=== PATIENT | female | born 2000 | race Two or more races ===

== ENCOUNTER 2024-07-05 12:00 | Observation (INO) | payer MEDICAID ==
[2024-07-05] MEDS ORDERED: PREN-96 PO (12:55)
--- NOTE | 2024-07-05 13:08 | DVHDS2 ---
Physician Discharge Progress N Final Diagnosis: gdm Operations or Procedures: Operations or Procedures nst,sono Condition on Discharge: Good Disposition: Home Discharge Instructions: Diet: Consistent carbohydrate Activity: No Restrictions, As Tolerated Medications: na Follow Up Care: Specialist: 3d Discharge Statement: "Patient was advised to return to the ER or call 911 if any headaches, dizziness, shortness of breath, chest pain, abdominal pain, bleeding, fevers, or worsening of medical condition. Patient was counseled about treatment plan, medications, possible side effects, patientverbalized understanding. All questions were answered to the best of my ability. This discharge took greater then 30 minutes in planning, reviewing documentation, counseling the patient, and discussing with other team members." FRANCESCA RICHARD DO Jul 05, 2024 13:08
--- NOTE | 2024-07-05 13:43 | DVH ---
BIOPHYSICAL PROFILE HISTORY: GDMA1 TECHNIQUE: Multiple transabdominal real-time grayscale sonographic images through the gravid uterus of the fetus with duplex Doppler color flow and M-mode spectral analysis FINDINGS: BIOPHYSICAL PROFILE: breathing score: 2 movement score: 2 tone score: 2 Quantitative JESSIE score: 2 (JESSIE: 11.6 Cm.) Total score: 8 The cervix not well visualized. Single live fetus in cephalic presentation. heart rate 136 beats per minute. Anterior placenta without previa or abruption IMPRESSION: Biophysical profile score: 8
== END 2024-07-05 13:44 | disposition home or self-care (01) ==
LOC: UNDOADMOB 12:00 → LDRP 12:00 → UNDODISOB 13:44
PROVIDERS: ADMIT Obstetrics & Gynecology; ATTEND Obstetrics & Gynecology
DX: O24.419 Gestational diabetes mellitus in pregnancy, unspecified control (principal); Z3A.33 33 weeks gestation of pregnancy; Z79.899 Other long term (current) drug therapy; Z98.890 Other specified postprocedural states
CPT/HCPCS: 59025; 76818; 81002; 82948; 82962; 94760; G0378

== ENCOUNTER 2024-07-12 15:50 | Observation (INO) | payer MEDICAID ==
[~2024-07-12] VITALS: Ht 152.4 cm; Wt 63.5 kg
[~2024-07-12 15:50] MED LIST: PREN-96 PO
--- NOTE | 2024-07-12 16:53 | DVH ---
Procedure: US BIOPHYSICAL PROFILE 07/12/2024 04:08 PM Indication: GDMA1 Comparison: US BIOPHYSICAL PROFILE on DOS: 07/05/24 Technique: Sonogram of gravid uterus utilizing grayscale and color techniques. FINDINGS: Single living intrauterine gestation. Presentation: Cephalic Placenta: Anterior, grade 2 heart rate: 148 bpm JESSIE: 17.1 cm, DVP: 5.9 cm Maternal cervix: Not visualized Biophysical Profile: breathing score: 2 movement score: 2 tone: 2 Quantitative JESSIE score: 2 Total score: 8/8 IMPRESSION: 1. Single living as above. 2. Biophysical profile score: 8/8.
--- NOTE | 2024-07-13 09:21 | DVHDS2 ---
Physician Discharge Progress N Final Diagnosis: GDMA1 Operations or Procedures: Operations or Procedures NST/BPP/JESSIE Condition on Discharge: Stable Disposition: Home Discharge Instructions: Diet: Consistent carbohydrate Activity: Light activity Follow Up/Referral: as scheduled Medications: N/A Follow Up Care: Discharge Statement: "Patient was advised to return to the ER or call 911 if any headaches, dizziness, shortness of breath, chest pain, abdominal pain, bleeding, fevers, or worsening of medical condition. Patient was counseled about treatment plan, medications, possible side effects, patientverbalized understanding. All questions were answered to the best of my ability. This discharge took greater then 30 minutes in planning, reviewing docu mentation, counseling the patient, and discussing with other team members." Visit Coding OBGYN Date of Service: Jul 12, 2024 Billing Provider: LINETTE CHOE DO DRILL FOREMAN Common Visit Codes: 41735-RGT/OBS SAME DATE (MOD) DRILL FOREMAN Procedure Codes: 60062-71- NON-STRESS TEST LINETTE CHOE DO Jul 13, 2024 09:21
== END 2024-07-12 17:24 | disposition home or self-care (01) ==
LOC: LDRP 15:50
PROVIDERS: ADMIT Obstetrics & Gynecology; ATTEND Obstetrics & Gynecology
DX: O24.419 Gestational diabetes mellitus in pregnancy, unspecified control (principal); Z3A.34 34 weeks gestation of pregnancy; Z79.899 Other long term (current) drug therapy; Z98.890 Other specified postprocedural states
CPT/HCPCS: 59025; 76818; 81002; 82948; 82962; 94760; G0378

== ENCOUNTER 2024-07-17 20:42 | Observation (INO) | payer MEDICAID ==
[~2024-07-17] VITALS: Ht 149.9 cm; Wt 64.0 kg
--- NOTE | 2024-07-17 22:22 | DVH ---
OB ULTRASOUND, LIMITED CLINICAL INDICATION: vaginal bleeding/contractions TECHNIQUE: Multiple grayscale ultrasound and M-mode images were obtained of the pelvis for evaluation of intrauterine . COMPARISON: US BIOPHYSICAL PROFILE on DOS: 07/12/24, US BIOPHYSICAL PROFILE on DOS: 07/05/24 FINDINGS /impression: Biophysical profile: 01/10 breathin movements: 2 tone: 2 Amniotic fluid: 2, JESSIE 16.5 cm heart rate: 136 beats per minute position: Cephalic Placenta location: Anterior Trace fluid in the cervix. Mild cervical funneling
--- NOTE | 2024-07-17 23:05 | DVHDS2 ---
Physician Discharge Progress N Final Diagnosis: well being established Operations or Procedures: Operations or Procedures S: 24yo IUP@35.1wks presents to triage for vaginal brown discharge/cramping this AM 07/20/2024. Pt reports mild cramping intermittently for 2 hours starting at 1000, lasting 5 seconds. Patient reports "flaking" when wiping and denies any spotting or bright red bleeding since initial vaginal brown discharge this AM. Denies UCs/LOF/VB/KUMAR/vision changes/RUQ pain. Endorses +FM. Patient reports eating a cookie and drinking DrDamian Yoon before coming in. Patient states she has not had intercourse for over a week. PNC: Routine PNC at [facility] w/ Dr. Madison, adequate visits, PNC complicated by GDMA1. dating based on LMP, GBS unknown. OB hx: C/S x1 O: VSS EFM: 130, moderate, +accels, -decels TOCO: irritability noted SVE - 0/30/-3 B A: 24yo IUP@35.1wks Vaginal brown discharge GDM A1 NST reactive P: D/C home. kick counts and Preeclampsia warning signs reviewed. PTL precautions given and when to return to the hospital. Other Interventions Other Interventions OB ULTRASOUND, LIMITED CLINICAL INDICATION: vaginal bleeding/contractions TECHNIQUE: Multiple grayscale ultrasound and M-mode images were obtained of the pelvis for evaluation of intrauterine . COMPARISON: US BIOPHYSICAL PROFILE on DOS: 07/12/24, US BIOPHYSICAL PROFILE on DOS: 07/05/24 FINDINGS /impression: Biophysical profile: 8/8 breathin movements: 2 tone: 2 Amniotic fluid: 2, JESSIE 16.5 cm heart rate: 136 beats per minute position: Cephalic Placenta location: Anterior Trace fluid in the cervix. Mild cervical funneling Condition on Discharge: Stable Disposition: Home Discharge Instructions: Diet: Consistent carbohydrate Activity: No Restrictions, As Tolerated Medications: see med list Follow Up Care: Specialist: f/u 1 week Discharge Statement: "Patient was advised to return to the ER or call 911 if any headaches, dizziness, shortness of breath, chest pain, abdominal pain, bleeding, fevers, or worsening of medical condition. Patient was counseled about treatment plan, medications, possible side effects, patientverbalized understanding. All questions were answered to the best of my ability. This discharge took greater then 30 minutes in planning, reviewing documentation, counseling the patient, and discussing with other team members." Visit Coding OBGYN Date of Service: Jul 17, 2024 Billing Provider: CHELO ALVAREZ CNM PACKAGING OPERATOR Common Visit Codes: 94397-MLLEZYG OBS CARE (MOD) CHIDI ZHAO MDWF Jul 17, 2024 23:05
== END 2024-07-17 22:51 | disposition home or self-care (01) ==
LOC: LDRP 20:42
PROVIDERS: ADMIT Obstetrics & Gynecology; ATTEND Obstetrics & Gynecology
DX: O24.419 Gestational diabetes mellitus in pregnancy, unspecified control (principal); O34.62 Maternal care for abnormality of vagina, second trimester; N89.8 Other specified noninflammatory disorders of vagina; Z98.890 Other specified postprocedural states; Z79.899 Other long term (current) drug therapy; Z3A.35 35 weeks gestation of pregnancy
CPT/HCPCS: 59025; 76817; 76818; 81002; 82962; 94760; G0378

== ENCOUNTER 2024-07-26 07:30 | Observation (INO) | payer MEDICAID ==
--- NOTE | 2024-07-27 17:00 | DVH ---
BIOPHYSICAL PROFILE HISTORY: gdma1 Comparison Study: Biophysical profile 07/17/2024 TECHNIQUE: Multiple real-time grayscale sonographic images through the gravid uterus of the fetus wi th duplex Doppler color flow and M-mode spectral analysis FINDINGS: BIOPHYSICAL PROFILE: breathing score: 2 movement score: 2 tone score: 2 Quantitative JESSIE score: 2 (JESSIE: 17.3 Cm.). MVP is 6.3 cm. Total score: 8 The cervix is unremarkable. Single live fetus in cephalic presentation. heart rate 121 beats per minute. Anterior placenta without previa or abruption IMPRESSION: Biophysical profile score: 8
--- NOTE | 2024-07-28 11:14 | DVHDS2 ---
Discharge Summary Date of Admission Jul 27, 2024 at 16:10 Date of Discharge: Jul 27, 2024 Admitting Diagnosis GDM A2 , 36 weeks Wounds: n/a Labs/Diagnostic Data: Laboratory Results Test 07/27/24 16:57 POC Glucose 108 mg/dl (70-106) Brief Hx & Hospital Course: here for analysis blood sugar monitoring Consults/Reason for consult none Operations or Procedures n/a Condition at Discharge: Good Final Diagnosis/Problems List 36 wk iup GDM A 1 Discharge Disposition: Home SNF Discharge Will this Physician continue t: No Discharge Instruct/Medications Diet: Consistent carbohydrate Activity: Light activity Discharge Statement: "Patient was advised to return to the ER or call 911 if any headaches, dizziness, shortness of breath, chest pain, abdominal pain, bleeding, fevers, or worsening of medical condition. Patient was counseled about treatment plan, medications, possible side effects, patientverbalized understanding. All questions were answered to the best of my ability. This discharge took greater then 30 minutes in planning, reviewing documentation, counseling the patient, and discussing with other team members." ASSESSMENT ASSESSMENT Assessment Visit Coding OBGYN Date of Service: Jul 27, 2024 Billing Provider: ALEXIS CANNON DO EMBEDDED PROCESSOR Common Visit Codes: 99110-WSN/OBS SAME DATE (LOW), 52950-BLU/OBS SAME DATE (MOD), 78984-ECH/OBS SAME DATE (HIGH) EMBEDDED PROCESSOR Procedure Codes: 30144-20- NON-STRESS TEST ALEXIS CANNON DO Jul 28, 2024 11:14
== END 2024-07-27 17:25 | disposition home or self-care (01) ==
LOC: LDRP 07-27 16:10
PROVIDERS: ADMIT Obstetrics & Gynecology; ATTEND Obstetrics & Gynecology
DX: O24.419 Gestational diabetes mellitus in pregnancy, unspecified control (principal); Z98.890 Other specified postprocedural states; Z79.899 Other long term (current) drug therapy; Z3A.36 36 weeks gestation of pregnancy
CPT/HCPCS: 59025; 76818; 81002; 82948; 82962; 94760; G0378

== ENCOUNTER 2024-08-02 13:12 | Observation (INO) | payer MEDICAID ==
--- NOTE | 2024-08-02 17:05 | DVH ---
Procedure: US BIOPHYSICAL PROFILE 08/02/2024 04:21 PM Indication: GDMA1 Comparison: US BIOPHYSICAL PROFILE on DOS: 07/27/24, US BIOPHYSICAL PROFILE on DOS: 07/17/24, US BIOPHY SICAL PROFILE on DOS: 07/12/24 Technique: Sonogram of gravid uterus utilizing grayscale and color techniques. FINDINGS: Single living intrauterine gestation. Presentation: Cephalic Placenta: Anterior, grade 2, no previa or abruption heart rate: 155 bpm JESSIE: 19 cm, DVP: 7.3 cm Maternal cervix: Not visualized Other: Nuchal cord X1 Biophysical Profile: breathing score: 2 movement score: 2 tone: 2 Quantitative JESSIE score: 2 Total score: 8/8 IMPRESSION: 1. Single living as above. 2. Biophysical profile score: 8/8.
--- NOTE | 2024-08-02 20:45 | DVHDS2 ---
Physician Discharge Progress N Final Diagnosis: GDMA1 Operations or Procedures: Operations or Procedures NST/BPP JESSIE Condition on Discharge: Stable Disposition: Home Discharge Instructions: Diet: Consistent carbohydrate Activity: Light activity Follow Up/Referral: as scheduled Medications: N/A Follow Up Care: Discharge Statement: "Patient was advised to return to the ER or call 911 if any headaches, dizziness, shortness of breath, chest pain, abdominal pain, bleeding, fevers, or worsening of medical condition. Patient was counseled about treatment plan, medications, possible side effects, patientverbalized understanding. All questions were answered to the best of my ability. This discharge took greater then 30 minutes in planning, reviewing docu mentation, counseling the patient, and discussing with other team members." Visit Coding OBGYN Date of Service: Aug 02, 2024 Billing Provider: LINETTE CHOE DO EXHIBIT CLEANER Common Visit Codes: 18830-LXB/OBS SAME DATE (MOD) EXHIBIT CLEANER Procedure Codes: 41173-04- NON-STRESS TEST LINETTE CHOE DO Aug 02, 2024 20:45
== END 2024-08-02 17:24 | disposition home or self-care (01) ==
LOC: LDRP 15:57 → UNDOADMOB 15:57 → LDRP 15:59 → UNDODISOB 17:24
PROVIDERS: ADMIT Obstetrics & Gynecology; ATTEND Obstetrics & Gynecology
DX: O24.410 Gestational diabetes mellitus in pregnancy, diet controlled (principal); Z3A.37 37 weeks gestation of pregnancy; Z79.899 Other long term (current) drug therapy; Z98.890 Other specified postprocedural states
CPT/HCPCS: 76818; 81002; 94760; G0378; 59025

== ENCOUNTER 2024-08-09 08:33 | Observation (INO) | payer MEDICAID ==
--- NOTE | 2024-08-09 17:36 | DVH ---
BIOPHYSICAL PROFILE HISTORY: gdma1 TECHNIQUE: Multiple transabdominal real-time grayscale sonographic images through the gravid uterus of the fetus with duplex Doppler color flow and M-mode spectral analysis FINDINGS: BIOPHYSICAL PROFILE: breathing score: 2 movement score: 2 tone score: 2 Quantitative JESSIE score: 2 (JESSIE: 15.9 Cm.) Total score: 8/8 The cervix not measured Single live fetus in cephalic presentation. heart rate 142 beats per minute. Anterior Grade 2 placenta without previa or abruption Single live fetus at 38 weeks 3 days Biophysical profile score 8/8 corresponding to an ZAID of 08/20/2024 IMPRESSION: 1. Biophysical profile score: 8/8
--- NOTE | 2024-08-10 08:15 | DVHDS2 ---
Physician Discharge Progress N Final Diagnosis: [id number] Operations or Procedures: Operations or Procedures nst,sono Condition on Discharge: Good Disposition: Home Discharge Instructions: Diet: Regular Activity: No Restrictions, As Tolerated Medications: na Follow Up Care: Specialist: 3d Discharge Statement: "Patient was advised to return to the ER or call 911 if any headaches, dizziness, shortness of breath, chest pain, abdominal pain, bleeding, fevers, or worsening of medical condition. Patient was counseled about treatment plan, medications, possible side effects, patientverbalized understanding. All questions were answered to the best of my ability. This discharge took greater then 30 minutes in planning, reviewing documentation, counseling the patient, and discussing with other team members." Visit Coding OBGYN Date of Service: Aug 09, 2024 Billing Provider: FRANCESCA RICHARD DO MANAGER RESPIRATORY CARE Common Visit Codes: 76890-IELVVGM INP/OBS CARE (HIGH) MANAGER RESPIRATORY CARE Procedure Codes: 10812-06- NON-STRESS TEST FRANCESCA RICHARD DO Aug 10, 2024 08:15
== END 2024-08-09 17:46 | disposition home or self-care (01) ==
LOC: LDRP 16:00 → UNDOADMOB 16:00 → LDRP 16:08 → UNDODISOB 17:46
PROVIDERS: ADMIT Obstetrics & Gynecology; ATTEND Obstetrics & Gynecology
DX: O24.419 Gestational diabetes mellitus in pregnancy, unspecified control (principal); Z98.890 Other specified postprocedural states; Z79.899 Other long term (current) drug therapy; Z3A.38 38 weeks gestation of pregnancy
CPT/HCPCS: 59025; 76819; 81002; 94760; G0378; 76818

== ENCOUNTER 2024-08-12 10:14 | Inpatient (IN) | payer MEDICAID ==
[~2024-08-12] VITALS: Ht 149.9 cm; Wt 68.0 kg
--- NOTE | 2024-08-12 09:14 | DVHHP ---
ADMIT DATE: 08/12/2024 CHIEF COMPLAINT: Desires repeat section. HISTORY OF PRESENT ILLNESS: The patient is a 2, para 1 female with EDC 08/20/2024, estimated gestational age of 39 weeks, admitted for repeat section. The patient has GDM A1, well controlled. She also has double nuchal cord on ultrasound. The patient wishes to proceed with repeat section. Denies having any vaginal bleeding or leakage of fluid. PAST MEDICAL HISTORY: None. PAST SURGICAL HISTORY: . SOCIAL HISTORY: None. FAMILY HISTORY: None. OBSTETRIC AND GYNECOLOGIC HISTORY: One section, GDM A1. REVIEW OF SYSTEMS: Consistent with HPI. PHYSICAL EXAMINATION: VITAL SIGNS: Stable, afebrile. HEENT: Within normal limits. CARDIOVASCULAR: Regular rate and rhythm. LUNGS: Clear to auscultation. BREASTS: Symmetrical. No masses. ABDOMEN: Gravid. Fundal height of 38 cm. PELVIC: Cervix closed, thick, high. EXTREMITIES: No clubbing, cyanosis or edema. IMPRESSION: * Intrauterine at 39 weeks. * Desires repeat section. * Gestational diabetes mellitus. * Nuchal cord. PLAN: Repeat section. Informed consent obtained. Risks and complications of surgery including infection, bleeding, hematoma formation, injury to bowel, bladder, surrounding organs, possibility of DVT, pulmonary embolism, risks of anesthesia discussed with the patient. Options reviewed. All questions were answered. The patient fully understands. She wishes to proceed with planned procedure. Aggie Madison DO MZ/SAY TID: [id number] RECEIPT: [id number]
[2024-08-13] VITALS (17 sets, daily range): BP systolic 108–132; BP diastolic 42–84; PULSE 81–123; RESP 16–20; TEMP 98–99; O2SAT 96–100
[2024-08-13] MEDS: LACTATED RINGER'S 1,000 ML IV ONE (04:30)
[2024-08-13] MEDS: LACTATED RINGER'S 1,000 ML IV SCH (04:30)
[2024-08-13] MEDS ORDERED: MORPHINE SULF PF 5 MG/10 ML VIAL ONE (05:52)
[2024-08-13] MEDS ORDERED: oxyTOCIN 10 UNIT/ML 10ML VIAL ONE (05:53)
[2024-08-13] MEDS ORDERED: ePHEDrine SULFATE 50 MG/ML AMP ONE (06:26)
[2024-08-13] MEDS ORDERED: ONDANSETRON HCL 4 MG/2 ML VIAL ONE (06:38)
[2024-08-13] MEDS: ceFAZolin 2 GM/D5W50ml 50 ML IV ONE (07:00)
[2024-08-13] MEDS ORDERED: ONDANSETRON HCL 4 MG/2 ML VIAL IV PRN (07:15)
[2024-08-13] MEDS: LACT. RINGERS/OXYTOCIN 20UNITS 1,000 ML IV ONE (07:15)
[2024-08-13] MEDS: GUM (CHEWING) 1 GUM CHEW CHEW ONE (07:15)
[2024-08-13] MEDS: diphenhdrAMINE HCL 50 MG/1 ML VL ONE ×2 (07:52→07:54)
--- NOTE | 2024-08-13 11:14 | DVHOP2 ---
Operative Report DATE OF OPERATION:08/13/24 PREOPERATIVE DIAGNOSES: [iup at 39wks in labor,desires rcs] POSTOPERATIVE DIAGNOSES: [same,nuchal cordx1] OPERATION PERFORMED: Repeat Section FINDINGS: [f] infant. Apgars of [8] and [9]. Weight [good] crying tone. [clear] amniotic fluid. Placenta and three-vessel were intact. Normal tubes, ovaries, and uterus. SURGEON: Aggie Richard D.O. PRODUCT ENGINEERING MANAGER: order entry technician, patrick]. ANESTHESIOLOGIST: Lola parish ANESTHESIA: [Duramorph spinal, regional]. COMPLICATIONS: [none]. ESTIMATED BLOOD LOSS: [800] mL. BLOOD PRODUCTS USED: [none]. PROCEDURE IN DETAIL: The patient was taken to the operating room, placed in sitting position, and spinal was placed without difficulty. She was then prepped and draped in a sterile fashion. A low Pfannenstiel incision was made scapel. At this point, it was carried down through the rectus fascia, nicked in the midline, and carried laterally. The rectus muscles were in the midline. Peritoneum was identified and entered with sharp dissection. Vesicouterine peritoneum was taken off the lower uterine segment. A lower uterine transverse incision was made with a scalpel down the chorionic membranes, ruptured with hemostat. was in vertex position. One hand was placed in the lower uterine segment. Head was essentially delivered spontaneously. Nose and mouth were bulb suctioned. Shoulders and torso were delivered without difficulty. Again, pharynx, nose, and mouth were re-suctioned with vigorous crying tone. Cord was cut. The was handed off to the awaiting Respiratory. At this point, umbilical blood sample was taken. Placenta was removed. Uterus was exteriorized, cleared off all clots and debris, irrigated, and closed with a double layer of 0-Vicryl. The vesicouterine peritoneum was incorporated into this closure. We had complete hemostasis. EBL was [800] mL. The instrument, lap, and sponge count was correct x1. The uterus was placed back into the peritoneum. The peritoneal cavity was re-inspected and the lower uterine incision with good hemostasis. We closed the peritoneum with running continuous of 2-0 Vicryl. The Rectus Fascia was closed with 0-PDS, running continuous, looped-0. The skin was closed undermined, irrigated, and close with frank. CONDITION: The patient's and the infant's condition is stable and but guarded. Visit Coding OBGYN Date of Service: Aug 13, 2024 Billing Provider: AGGIE RICHARD DO POULTRY HATCHERY SUPERVISOR Common Visit Codes: 08771-NBL/OBS SAME DATE (HIGH) POULTRY HATCHERY SUPERVISOR Procedure Codes: 99617-R-GLCAFEP DELIVERY ONLY AGGIE RICHARD DO Aug 13, 2024 11:14
--- NOTE | 2024-08-13 11:20 | POSTOP ---
Post-Operative Note Post-Operative Note Preop Diagnosis iup at 39wks in labor,desires rcs Postop Diagnosis: same,nuchal cordx1 Operation performed rcs Specimen baby girl,apgars 8-9,nuchal cord Anesthesia: Regional Anesthesiologist: tequila Blood Loss(fluid mgmt) 800ml Surgeon Francesca Madison Artillery Maintenance Supervisor latosha Implant na Complications & Mgmt none Date 08/13/24 Time 11:16 Visit Coding OBGYN Date of Service: Aug 13, 2024 Billing Provider: FRANCESCA MADISON DO DATA COMPILER Common Visit Codes: 44850-VOO/OBS SAME DATE (HIGH) DATA COMPILER Procedure Codes: 37475-W-JFLRNWE DELIVERY ONLY FRANCESCA MADISON DO Aug 13, 2024 11:20
[2024-08-13] MEDS ORDERED: DOCU-94 PO (11:26)
[2024-08-13] MEDS ORDERED: HYDR-4072 PO (11:26)
[2024-08-13] MEDS ORDERED: IBUP-1456 PO (11:26)
[2024-08-13] MEDS: ceFAZolin 1GM/50ML 50 ML IV SCH (15:32)
[2024-08-13] MEDS ORDERED: ACETAMINOPHEN IV 1000 MG/100ML (10MG/ML) IV PRN (21:45)
[2024-08-13] MEDS: ACETAMINOPHEN IV 1000 MG/100ML (10MG/ML) IV PRN (22:16)
[2024-08-13 22:29] LABS: Basophils # (auto) 0 10 ^3/uL (0-0.2); Basophils % (auto) 0.1 % (0.0-2.0); Eosinophils # (auto) 0 10 ^3/uL (0-0.8); Eosinophils % (auto) 0.1 % (0.0-7.0); Hematocrit 36.6 % (36.0-46.0); Hemoglobin 12.1 g/dL (12.2-16.2); Lymphocytes # (auto) 1.1 10 ^3/uL (0.4-5.4); Lymphocytes % (auto) 9.7 % (10.0-50.0); Mean Corpuscular Hemoglobin 30.1 pg (28.0-32.0); Mean Corpuscular Hgb Conc. 33.1 g/dL (32.0-36.0); Mean Corpuscular Volume 90.8 fL (80.0-100.0); Monocytes # (auto) 0.9 10 ^3/uL (0-1.3); Monocytes % (auto) 7.7 % (0.0-12.0); Neutrophils # (auto) 9.6 10 ^3/uL (1.6-8.6); Neutrophils % (auto) 82.4 % (37.0-80.0); Platelet Count (auto) 165 10^3/uL (140-450); Red Blood Cells 4.03 10^6/uL (4.0-5.20); Red Cell Distribution Width 14.2 % (11.8-14.3); White Blood Cell 11.6 10^3/uL (4.4-10.8)
[2024-08-13 23:23] LABS: Urine Bacteria FEW /hpf (None Seen); Urine Blood Negative /uL (Negative); Urine Clarity Turbid (Clear); Urine Color Light-Yellow (Yellow); Urine Protein, UAD Negative (Negative); Urine Specific Gravity 1.014 (1.001-1.035); Urine Squamous Epithelial Cell FEW /hpf (<5); Urine Urobilinogen Normal (Negative); Urine WBC 1 /HPF (0-5); Urine pH 6.5 (5.0-9.0)
[2024-08-14] VITALS (11 sets, daily range): BP systolic 102–121; BP diastolic 5–79; PULSE 91–118; RESP 16–18; TEMP 98.1–99; O2SAT 95–99
[2024-08-14] MEDS ORDERED: HYDROcodone-ACET 5/325MG TAB PO PRN ×2 (04:30)
[2024-08-14] MEDS: SIMETHICONE 80 MG CHEWABLE TABLET PO SCH (06:53)
[2024-08-14 07:23] LABS: Basophils # (auto) 0 10 ^3/uL (0-0.2); Basophils % (auto) 0.2 % (0.0-2.0); Eosinophils # (auto) 0 10 ^3/uL (0-0.8); Hematocrit 37.9 % (36.0-46.0); Hemoglobin 12.5 g/dL (12.2-16.2); Lymphocytes # (auto) 1.2 10 ^3/uL (0.4-5.4); Lymphocytes % (auto) 9.3 % (10.0-50.0); Mean Corpuscular Hemoglobin 30.2 pg (28.0-32.0); Mean Corpuscular Hgb Conc. 33.1 g/dL (32.0-36.0); Mean Corpuscular Volume 91.4 fL (80.0-100.0); Monocytes # (auto) 0.9 10 ^3/uL (0-1.3); Monocytes % (auto) 6.8 % (0.0-12.0); Neutrophils # (auto) 10.8 10 ^3/uL (1.6-8.6); Neutrophils % (auto) 83.7 % (37.0-80.0); Nucleated Red Blood Cells % 0.1 %; Platelet Count (auto) 183 10^3/uL (140-450); Red Blood Cells 4.15 10^6/uL (4.0-5.20); Red Cell Distribution Width 14.3 % (11.8-14.3); White Blood Cell 12.9 10^3/uL (4.4-10.8)
--- NOTE | 2024-08-14 07:28 | DVHPN2 ---
Progress Note Date Seen: Aug 14, 2024 Subjective POD#1 s/p Repeat C/S at Term S: Doing well. Pain controlled. Lochia minimal vital signs Vital Sign Date Time Temp Pulse Resp B/P (MAP) Pulse Ox O2 Delivery O2 Flow Rate FiO2 08/14/24 05:15 95 16 96 08/14/24 03:00 98.3 112/69 (83) 98.3 08/13/24 19:15 Room Air Total Intake and Output 08/13/24 08/13/24 08/14/24 15:00 23:00 07:00 Output Total 500 ml 650 ml 950 ml Balance -500 ml -650 ml -950 ml medications Current Medications Medications Dose Ordered Sig/Mony Route Start Time Stop Time Status Last Admin Dose Admin Lactated Ringer's 1,000 ml @ 125 mls/hr Q8H IV 08/13/24 04:30 08/14/24 03:09 125 MLS/HR Ondansetron HCl 4 mg Q4HP PRN IV 08/13/24 07:15 Acetaminophen 1,000 mg Q8HPRN PRN IV 08/13/24 22:00 08/14/24 14:01 08/14/24 06:53 1,000 MG Docusate Sodium 100 mg Q12HR PO 08/14/24 10:00 Dimethicone 80 mg QID PO 08/14/24 06:00 08/14/24 06:53 80 MG Ibuprofen 800 mg Q8HP PRN PO 08/14/24 04:30 Acetaminophen/ Hydrocodone Bitart 1 tab Q4HPRN PRN PO 08/14/24 04:30 Acetaminophen/ Hydrocodone Bitart 2 tab Q4HPRN PRN PO 08/14/24 04:30 laboratory and microbiology Objective O: AFVSS Chest: heart and lung sounds normal. Abd soft, non-tender, fundus firm, BS, no rebound or guarding, Incision - dressing and incision clean, dry, intact Ext Neg Homans, Non-tender, edema Lochia - minimal Labs Reviewed Assessment/Plan POD#1 s/p Repeat C/S doing well Continue current supportive care Plan discussed with: Patient Visit Coding OBGYN Date of Service: Aug 14, 2024 Billing Provider: LINETTE CHOE DO STUDENT NURSE Common Visit Codes: [id number] INP/OBS CARE(MOD) LINETTE CHOE DO Aug 14, 2024 07:28
[2024-08-14] MEDS: ceFAZolin 1GM/50ML 50 ML IV ONE (07:38)
[2024-08-14] MEDS: DOCUSATE SOD 100 MG CAP PO SCH (10:57)
[2024-08-14] MEDS: IBUPROFEN 800 MG TAB PO PRN (12:11)
[2024-08-15 03:10] VITALS: BP 113/63; PULSE 76; RESP 16; TEMP 98.3; O2SAT 99
--- NOTE | 2024-08-15 06:31 | DVHDS2 ---
Physician Discharge Progress N Final Diagnosis: Term , delivered s/p Repeat C/Section GDMA1 Operations or Procedures: Operations or Procedures Repeat Low transv c/section Commentary: Commentary Normal C/S delivery without complications Uneventful PP course Pain controlled. Stable for discharge on POD2 Condition on Discharge: Stable Disposition: Home Discharge Instructions: Diet: Regular Activity: Light activity Activity comment: Pelvic rest Follow Up/Referral: [address] Madison Medications: Ibuprofen, Fenton 5mg Follow Up Care: Discharge Statement: "Patient was advised to return to the ER or call 911 if any headaches, dizziness, shortness of breath, chest pain, abdominal pain, bleeding, fevers, or worsening of medical condition. Patient was counseled about treatment plan, medications, possible side effects, patientverbalized understanding. All questions were answered to the best of my ability. This discharge took greater then 30 minutes in planning, reviewing documentation, counseling the patient, and discussing with other team members." Visit Coding OBGYN Date of Service: Aug 15, 2024 Billing Provider: LINETTE CHOE DO ATHLETIC TURF WORKER Common Visit Codes: 76180-ZZD/OBS DISCH DAY <30MIN LINETTE CHOE DO Aug 15, 2024 06:30
[2024-08-15 07:00] VITALS: BP 110/72; PULSE 82; RESP 18; TEMP 97.6; O2SAT 97
[2024-08-15 09:23] VITALS: TEMP 36.4
[2024-08-15 10:50] VITALS: BP 109/66; PULSE 88; RESP 16; TEMP 98.1
== END 2024-08-15 12:15 | disposition home or self-care (01) | DRG 540 ==
LOC: LDRP 08-13 03:59
PROVIDERS: ADMIT Obstetrics & Gynecology; ATTEND Obstetrics & Gynecology
PROC: 10D00Z1 Extraction of Products of Conception, Low, Open Approach (ICD-10-PCS; principal; 2024-08-13)
DX: O69.81X0 Labor and delivery complicated by cord around neck, without compression, not applicable or unspecified (principal); O24.420 Gestational diabetes mellitus in childbirth, diet controlled; O34.219 Maternal care for unspecified type scar from previous cesarean delivery; Z37.0 Single live birth; Z3A.39 39 weeks gestation of pregnancy
CPT/HCPCS: 36415; 80053; 80307; 81001; 81002; 82962; 85025; 85610; 85730; 86592; 86780; 86803; 86850; 86900; 86901; 94760; 94762; 96360; 96361; G0378; J0131; J2405; J2590